=== PATIENT | male | born 1975 | race Caucasian/White ===

== ENCOUNTER 2024-06-07 06:49 | Day surgery (SDC) | payer OTHER ==
[2024-06-06 12:54] VITALS: BMI 29.5
[2024-06-07 11:54] VITALS: TEMP 98.3
[2024-06-07 12:31] VITALS: PULSE 61
[2024-06-07 12:41] VITALS: BP 107/68; RESP 16
== END 2024-06-07 12:35 | disposition home or self-care (01) ==
LOC: JASU-ENDO 06:49
PROVIDERS: ATTEND Internal Medicine Gastroenterology
PROC: 0DBP8ZX Excision of Rectum, Via Natural or Artificial Opening Endoscopic, Diagnostic (ICD-10-PCS; principal; 2024-06-07 12:00)
DX: Z12.11 Encounter for screening for malignant neoplasm of colon (principal); D12.8 Benign neoplasm of rectum; K57.30 Diverticulosis of large intestine without perforation or abscess without bleeding; K64.8 Other hemorrhoids
CPT/HCPCS: 88305-TC